=== PATIENT | female | born 1950 | race Caucasian/White ===

== ENCOUNTER → 2017-08-09 | Outpatient (CLI) | payer BC ==
[~2017-08-09] MED LIST: ACET500 PO; ALBU90OI INH; ASPI81CH PO; ASPI81EC PO; BIMA.03OPS OD; BIMA.03OPS OU; CHOL10002 PO; CIPR500 PO; DEXILANT60 MG PO; DICY20 PO; ERGO400 PO; FLUT110OIA INH; GENT.3OPSO BOTHEYES; GLIM4 PO; GLIP5 PO; GLIP5ER PO; INSLI100I SUBQ; LEVFLO500 PO; LISI20 PO; METR70GEL VAG; NATE60 PO; NEBI5 PO; ONDA4ODT MM; PANT20 PO; PANT40 PO; PHENA200 PO; ROSU10TA PO; RXHYDACE PO; RXHYDMOR2 PO; RXPHEN200 PO; SITA100T2 PO; SUCR1 PO; Toprol Xl25 MG PO; VITAMIN D3 PO
[2017-08-09 12:40] LABS: BASOPHILS ABSOLUTE AUTO 0.05 K/mm3 (0.00-0.23); BASOPHILS PERCENT AUTO 1 % (0-2); EOSINOPHILS ABSOLUTE AUTO 0.15 K/mm3 (0.00-0.68); EOSINOPHILS PERCENT AUTO 2 % (0-6); Hematocrit 42.1 % (33.0-51.0); Hemoglobin 14.4 g/dL (11.5-16.0); IMMATURE GRAN ABSOLUTE AUTO 0.01 K/mm3 (0.00-0.10); IMMATURE GRAN PERCENT AUTO 0 % (0-1); LYMPHOCYTES ABSOLUTE AUTO 2.53 K/mm3 (0.84-5.20); LYMPHOCYTES PERCENT AUTO 38 % (21-46); MONOCYTES ABSOLUTE AUTO 0.35 K/mm3 (0.16-1.47); MONOCYTES PERCENT AUTO 5 % (4-13); Mean Corpuscular HGB 29.2 pg (26.0-34.0); Mean Corpuscular HGB Conc 34.2 g/dL (31.5-36.5); Mean Corpuscular Volume 85 fL (80-100); Mean Platelet Volume 10.5 fL (9.1-12.4); NEUTROPHILS ABSOLUTE AUTO 3.59 K/mm3 (1.96-9.15); NEUTROPHILS PERCENT AUTO 54 % (41-73); Platelet Count 267 K/mm3 (150-400); RDW Coefficient Variation 12.3 % (11.7-14.2); RDW Standard Deviation 37.7 fL (35.1-46.3); Red Blood Cell Count 4.93 M/mm3 (3.80-5.20); White Blood Cell Count 6.68 K/mm3 (4.00-11.30)
[2017-08-09 13:00] LABS: Alanine Aminotransfer (ALT/SGP 30 U/L (12-78); Albumin, Blood 4.1 g/dL (3.4-5.0); Alk Phos 63 U/L (40-126); Anion Gap 10 mmol/L (6-16); Aspartate Aminotrans (AST/SGOT 20 U/L (12-37); Bilirubin, Total 0.5 mg/dL (0.1-1.0); Blood Urea Nitrogen 13 mg/dL (8-24); Bun/Creatinine Ratio 16.9 (12.0-20.0); CO2, Blood 28 mmol/L (21-32); Calcium, Blood 9.6 mg/dL (8.5-10.1); Chloride, Blood 102 mmol/L (98-108); Creatinine, Blood 0.77 mg/dL (0.40-1.00); Glomerular Filtration Rate >60 (60-); Glucose, Blood 117 mg/dL (70-99); Potassium, Blood 3.8 mmol/L (3.5-5.5); Sodium, Blood 140 mmol/L (136-145); Thyroid Stimulating Hormone 1.606 uIU/mL (0.360-4.800); Total Protein, Blood 8.1 g/dL (6.4-8.2)
== END | disposition home or self-care (01) ==
LOC: LAB EV 12:36
PROVIDERS: Physician Assistant
DX: R06.01 Orthopnea (principal); R53.83 Other fatigue; E11.65 Type 2 diabetes mellitus with hyperglycemia
CPT/HCPCS: 80053; 83880; 84443; 85025

== ENCOUNTER 2019-01-17 02:38 | Emergency (ER) | payer BC ==
[~2019-01-17] VITALS: Ht 165.1 cm; Wt 81.7 kg
[2019-01-17 03:13] LABS: BASOPHILS ABSOLUTE AUTO 0.04 K/mm3 (0.00-0.23); BASOPHILS PERCENT AUTO 0 % (0-2); EOSINOPHILS ABSOLUTE AUTO 0.25 K/mm3 (0.00-0.68); EOSINOPHILS PERCENT AUTO 3 % (0-6); Hemoglobin 12.5 g/dL (11.5-16.0); IMMATURE GRAN ABSOLUTE AUTO 0.03 K/mm3 (0.00-0.10); IMMATURE GRAN PERCENT AUTO 0 % (0-1); LYMPHOCYTES ABSOLUTE AUTO 2.88 K/mm3 (0.84-5.20); LYMPHOCYTES PERCENT AUTO 29 % (21-46); MONOCYTES ABSOLUTE AUTO 0.73 K/mm3 (0.16-1.47); MONOCYTES PERCENT AUTO 7 % (4-13); Mean Corpuscular HGB 28.5 pg (26.0-34.0); Mean Corpuscular HGB Conc 32.9 g/dL (31.5-36.5); Mean Corpuscular Volume 87 fL (80-100); Mean Platelet Volume 10.3 fL (9.1-12.4); NEUTROPHILS ABSOLUTE AUTO 5.96 K/mm3 (1.96-9.15); NEUTROPHILS PERCENT AUTO 60 % (41-73); Platelet Count 223 K/mm3 (150-400); RDW Coefficient Variation 12.9 % (11.7-14.2); RDW Standard Deviation 40.2 fL (35.1-46.3); Red Blood Cell Count 4.39 M/mm3 (3.80-5.20); White Blood Cell Count 9.89 K/mm3 (4.00-11.30)
[2019-01-17 03:32] LABS: Alanine Aminotransfer (ALT/SGP 22 U/L (12-78); Albumin, Blood 3.7 g/dL (3.4-5.0); Albumin/Globulin Ratio 1.1 (0.8-1.8); Alk Phos 55 U/L (50-136); Anion Gap 6 mmol/L (6-16); Aspartate Aminotrans (AST/SGOT 13 U/L (12-37); Bilirubin, Total 0.2 mg/dL (0.1-1.0); Blood Urea Nitrogen 13 mg/dL (8-24); Bun/Creatinine Ratio 19.4 (12.0-20.0); CO2, Blood 29 mmol/L (21-32); Chloride, Blood 106 mmol/L (98-108); Creatinine, Blood 0.67 mg/dL (0.40-1.00); Globulin, Blood 3.5 g/dL (2.2-4.0); Glomerular Filtration Rate >60 (60-); Glucose, Blood 117 mg/dL (70-99); Potassium, Blood 3.2 mmol/L (3.5-5.5); Sodium, Blood 141 mmol/L (136-145); Total Protein, Blood 7.2 g/dL (6.4-8.2)
[2019-01-17 04:09] LABS: Source, Urine Clean Catch
[2019-01-17 04:11] LABS: Appearance, Urine Clear (Clear); Bilirubin, Urine Neg (Neg); Blood, Urine Neg (Neg); Color, Urine Yellow (P-Yellow); Glucose Qualitative, Urine Neg (Neg); Ketones, Urine Neg (Neg); Leukocyte Esterase, Urine Neg (Neg); Nitrite, Urine Neg (Neg); Protein, Urine Neg (Neg); Urobilinogen, Urine NORM (Normal)
== END 2019-01-17 06:59 | disposition home or self-care (01) ==
LOC: ER 02:38
PROVIDERS: Emergency Medicine
DX: E11.649 Type 2 diabetes mellitus with hypoglycemia without coma (principal); R10.12 Left upper quadrant pain; Z88.2 Allergy status to sulfonamides; Z88.8 Allergy status to other drugs, medicaments and biological substances; Z79.4 Long term (current) use of insulin; Z79.899 Other long term (current) drug therapy; Z79.82 Long term (current) use of aspirin; I10 Essential (primary) hypertension
CPT/HCPCS: 36415; 74176; 80053; 81003; 82947; 85025; 96360; 99285-25; J7030

== ENCOUNTER 2019-12-09 03:27 | Inpatient (IN) | payer MEDICARE, BC ==
[~2019-12-09] VITALS: Ht 165.1 cm; Wt 82.3 kg
[2019-12-09] MEDS ORDERED: NOVOLOG FL100 UNIT/3 (03:50)
[2019-12-09] MEDS ORDERED: LANTUS SOL100 UNIT/1 SC (03:50)
[2019-12-09] MEDS ORDERED: Cymbalta30 MG PO (03:50)
[2019-12-09] MEDS ORDERED: COMBIGAN 0.2%-0.5 ML (03:50)
[2019-12-09] MEDS ORDERED: LATANOPROST2.5 M1 (03:51)
[2019-12-09] MEDS ORDERED: ROCKLATAN 0.022.5 M1 BOTHEYES (03:51)
[2019-12-09] MEDS ORDERED: TRULICITY1.5 MG/0.1 SQ (03:51)
[2019-12-09 05:29] LABS: BASOPHILS ABSOLUTE AUTO 0.04 K/mm3 (0.00-0.23); BASOPHILS PERCENT AUTO 0 % (0-2); EOSINOPHILS ABSOLUTE AUTO 0.21 K/mm3 (0.00-0.68); EOSINOPHILS PERCENT AUTO 2 % (0-6); Hematocrit 42.6 % (33.0-51.0); Hemoglobin 14.1 g/dL (11.5-16.0); IMMATURE GRAN ABSOLUTE AUTO 0.04 K/mm3 (0.00-0.10); IMMATURE GRAN PERCENT AUTO 0 % (0-1); LYMPHOCYTES ABSOLUTE AUTO 2.12 K/mm3 (0.84-5.20); LYMPHOCYTES PERCENT AUTO 19 % (21-46); MONOCYTES ABSOLUTE AUTO 0.48 K/mm3 (0.16-1.47); MONOCYTES PERCENT AUTO 4 % (4-13); Mean Corpuscular HGB 28.8 pg (26.0-34.0); Mean Corpuscular HGB Conc 33.1 g/dL (31.5-36.5); Mean Corpuscular Volume 87 fL (80-100); Mean Platelet Volume 10.9 fL (9.1-12.4); NEUTROPHILS ABSOLUTE AUTO 8.41 K/mm3 (1.96-9.15); NEUTROPHILS PERCENT AUTO 74 % (41-73); Platelet Count 249 K/mm3 (150-400); RDW Standard Deviation 41.1 fL (35.1-46.3)
[2019-12-09 05:50] LABS: Alanine Aminotransfer (ALT/SGP 20 U/L (12-78); Albumin, Blood 3.8 g/dL (3.4-5.0); Albumin/Globulin Ratio 0.9 (0.8-1.8); Alk Phos 64 U/L (50-136); Anion Gap 6 mmol/L (6-16); Aspartate Aminotrans (AST/SGOT 10 U/L (12-37); Bilirubin, Total 0.3 mg/dL (0.1-1.0); Blood Urea Nitrogen 14 mg/dL (8-24); Bun/Creatinine Ratio 19.8 (12.0-20.0); CO2, Blood 30 mmol/L (21-32); Calcium, Blood 9.6 mg/dL (8.5-10.1); Chloride, Blood 104 mmol/L (98-108); Creatinine, Blood 0.71 mg/dL (0.40-1.00); Globulin, Blood 4.1 g/dL (2.2-4.0); Glomerular Filtration Rate >60 (60-); Glucose, Blood 198 mg/dL (70-99); Magnesium, Blood 2.3 mg/dL (1.6-2.4); Potassium, Blood 3.7 mmol/L (3.5-5.5); Sodium, Blood 140 mmol/L (136-145); Total Protein, Blood 7.9 g/dL (6.4-8.2)
[2019-12-09 06:29] LABS: Source, Urine Clean Catch
[2019-12-09 06:33] LABS: Appearance, Urine Clear (Clear); Bilirubin, Urine Neg (Neg); Blood, Urine Neg (Neg); Color, Urine Yellow (P-Yellow); Glucose Qualitative, Urine Neg (Neg); Ketones, Urine Neg (Neg); Leukocyte Esterase, Urine Neg (Neg); Nitrite, Urine Neg (Neg); Protein, Urine Neg (Neg); Urobilinogen, Urine NORM (Normal)
[2019-12-09] MEDS ORDERED: COMBIGAN 0.2%-0.5 ML BOTHEYES (08:54)
--- NOTE | 2019-12-09 17:01 | NUR ---
SHIFT SUMMARY ED ADMIT THIS MORNING. PATIENT MEDICTED FOR PAIN X1 AND NAUSEA X1. DENIES SHORTNESS OF BREATH. PATIENT UP SBA TO BSC. NG RUNNING TO LIS, DRAINING ORANGE BROWN LIQUID. DR. BLOOM CONSULTED TODAY. PATIENT HAD SMALL BM, REPORTS SOME REDUCTION IN ABDOMINAL PAIN. CALL LIGHT IN REACH.
--- NOTE | 2019-12-10 04:10 | NUR ---
SHIFT SUMMARY PT HAS HAD NO ACUTE CHANGES THIS SHIFT, DENIES PAIN/NAUSEA THIS SHIFT, ONLY C/O TENDERNESS IN THROAT D/T NG TUBE & PRESSURE/TENDERNESS IN ABD, PT SLEPT T/O MOST OF THE NIGHT, WOKE 1X D/T DIAPHORESIS, REMAINS AFEBRILE, NG REMIANS IN PLACE 100MLS BROWN OUTBUT THIS SHIFT, PT SLEEPING AT THIS TIME, CALL LIGHT IN REACH, WILL CONT TO MONITOR UNTIL REPORT GIVEN TO DAY RN.
[2019-12-10 04:46] LABS: BASOPHILS ABSOLUTE AUTO 0.03 K/mm3 (0.00-0.23); BASOPHILS PERCENT AUTO 0 % (0-2); EOSINOPHILS ABSOLUTE AUTO 0.16 K/mm3 (0.00-0.68); EOSINOPHILS PERCENT AUTO 2 % (0-6); Hematocrit 37.3 % (33.0-51.0); Hemoglobin 11.9 g/dL (11.5-16.0); IMMATURE GRAN ABSOLUTE AUTO 0.05 K/mm3 (0.00-0.10); IMMATURE GRAN PERCENT AUTO 1 % (0-1); LYMPHOCYTES ABSOLUTE AUTO 2.56 K/mm3 (0.84-5.20); LYMPHOCYTES PERCENT AUTO 28 % (21-46); MONOCYTES ABSOLUTE AUTO 0.59 K/mm3 (0.16-1.47); MONOCYTES PERCENT AUTO 7 % (4-13); Mean Corpuscular HGB 28.5 pg (26.0-34.0); Mean Corpuscular HGB Conc 31.9 g/dL (31.5-36.5); Mean Corpuscular Volume 89 fL (80-100); Mean Platelet Volume 10.8 fL (9.1-12.4); NEUTROPHILS ABSOLUTE AUTO 5.64 K/mm3 (1.96-9.15); NEUTROPHILS PERCENT AUTO 63 % (41-73); Platelet Count 206 K/mm3 (150-400); RDW Coefficient Variation 12.8 % (11.7-14.2); RDW Standard Deviation 41.6 fL (35.1-46.3); Red Blood Cell Count 4.17 M/mm3 (3.80-5.20); White Blood Cell Count 9.03 K/mm3 (4.00-11.30)
[2019-12-10 05:06] LABS: Alanine Aminotransfer (ALT/SGP 15 U/L (12-78); Albumin, Blood 2.9 g/dL (3.4-5.0); Albumin/Globulin Ratio 0.9 (0.8-1.8); Alk Phos 54 U/L (50-136); Anion Gap 3 mmol/L (6-16); Aspartate Aminotrans (AST/SGOT 12 U/L (12-37); Bilirubin, Total 0.5 mg/dL (0.1-1.0); Blood Urea Nitrogen 11 mg/dL (8-24); Bun/Creatinine Ratio 15.3 (12.0-20.0); CO2, Blood 29 mmol/L (21-32); Calcium, Blood 8.3 mg/dL (8.5-10.1); Chloride, Blood 108 mmol/L (98-108); Creatinine, Blood 0.72 mg/dL (0.40-1.00); Globulin, Blood 3.2 g/dL (2.2-4.0); Glomerular Filtration Rate >60 (60-); Glucose, Blood 145 mg/dL (70-99); Potassium, Blood 3.6 mmol/L (3.5-5.5); Sodium, Blood 140 mmol/L (136-145); Total Protein, Blood 6.1 g/dL (6.4-8.2)
[2019-12-11 04:55] LABS: BASOPHILS ABSOLUTE AUTO 0.03 K/mm3 (0.00-0.23); BASOPHILS PERCENT AUTO 0 % (0-2); EOSINOPHILS ABSOLUTE AUTO 0.23 K/mm3 (0.00-0.68); EOSINOPHILS PERCENT AUTO 3 % (0-6); Hematocrit 39.4 % (33.0-51.0); Hemoglobin 12.5 g/dL (11.5-16.0); IMMATURE GRAN ABSOLUTE AUTO 0.04 K/mm3 (0.00-0.10); IMMATURE GRAN PERCENT AUTO 0 % (0-1); LYMPHOCYTES ABSOLUTE AUTO 2.06 K/mm3 (0.84-5.20); LYMPHOCYTES PERCENT AUTO 22 % (21-46); MONOCYTES ABSOLUTE AUTO 0.58 K/mm3 (0.16-1.47); MONOCYTES PERCENT AUTO 6 % (4-13); Mean Corpuscular HGB 28.3 pg (26.0-34.0); Mean Corpuscular HGB Conc 31.7 g/dL (31.5-36.5); Mean Corpuscular Volume 89 fL (80-100); Mean Platelet Volume 10.4 fL (9.1-12.4); NEUTROPHILS ABSOLUTE AUTO 6.39 K/mm3 (1.96-9.15); NEUTROPHILS PERCENT AUTO 69 % (41-73); Platelet Count 221 K/mm3 (150-400); RDW Coefficient Variation 12.8 % (11.7-14.2); RDW Standard Deviation 41.4 fL (35.1-46.3); Red Blood Cell Count 4.42 M/mm3 (3.80-5.20); White Blood Cell Count 9.33 K/mm3 (4.00-11.30)
--- NOTE | 2019-12-11 05:08 | NUR ---
SHIFT SUMMARY PT REPORTED ABD PAIN THROUGHOUT HER ABD. SHE ALSO REPORTED PAIN FROM NG TUBE. MEDICATED X 1 W/ 0.2 MG DILAUDID WITH NO ILL EFFECTS. PT REPORTED RELIEF. PT ALSO COMPLAINED OF NAUSEA THIS EVENING. 1 DOSE 4 MG ZOFRAN GIVEN. NG TUBE IN PLACE HOOKED UP TO LOW INTERMITTENT SUCTION WITH 300 ML LIGHT GREEN OUTPUT THIS EVENING. NO BM THIS EVENING, PT MADE MULTIPLE ATTEMPS SITTING ON THE BSC BUT WAS UNABLE TO PRODUCE ANY STOOL. PT DENIED ANY FLATUS. ABD HAS SOME DISTENTION. BOWEL TONES HYPOACTIVE. PT DID NOT SLEEP WELL THIS EVENING. AWAKE THROUGH MOST OF THE NIGHT. SLEEPING FOR ONLY SHORT PERIODS OF TIME EACH TIME. BLOOD PRESSURE ELEVATED WITH SYSTOLIC 160. HYDRALAZINE 10 MG GIVEN WITH GOOD EFFECT. OTHERWISE VITAL SIGNS STABLE. WILL CONTINUE TO MONITOR AND REPORT TO DAY RN.
[2019-12-11 05:11] LABS: Anion Gap 5 mmol/L (6-16); Blood Urea Nitrogen 7 mg/dL (8-24); Bun/Creatinine Ratio 9.8 (12.0-20.0); CO2, Blood 30 mmol/L (21-32); Calcium, Blood 8.9 mg/dL (8.5-10.1); Chloride, Blood 105 mmol/L (98-108); Creatinine, Blood 0.72 mg/dL (0.40-1.00); Glomerular Filtration Rate >60 (60-); Glucose, Blood 124 mg/dL (70-99); Potassium, Blood 3.2 mmol/L (3.5-5.5); Sodium, Blood 140 mmol/L (136-145)
--- NOTE | 2019-12-11 15:37 | NUR ---
Patient is sitting up in bed and alert. Patient shares with me about her medical issues, medical history and plan of care. Patient talks about her family unit complications and the many stessors she dealing with. Patient is very tearful at times. Patient explains about her belief system (patient attends [employer]). I listen empathically, normalize patient's experience, reinforce helpful attitudes and practices and provide pastoral curriculum counselor and prayer. Patient responds well and displays evidence of reduced stress and improoved peace.I will continue to remain available to patient and family.
--- NOTE | 2019-12-11 15:57 | NUR ---
PATIENT IS ALERT AND ORIENTED. ABLE TO MAKE NEEDS KNOWN. CONTINUES ON NG TUBE WITH LOW-INTERMEDIATE SUCTION AND IS PUTTING OUT DARK GREEN DRAINAGE. STARTED ON IV ABX WITHOUT ANY S/SX OF ADVERSE REACTIONS NOTED OR REPORTED. PATIENT CALLS APPROPRIATELY FOR STAFF ASSIST NEEDED. NO ACUTE CHANGES TO REPORT ON AT THIS TIME. WILL CONTINUE TO MONITOR AND PROVIDE CARE NEEDED.
--- NOTE | 2019-12-12 05:14 | NUR ---
SHIFT SUMMARY A/O, ABLE TO MAKE NEEDS KNOWN. COOPERATIVE WITH CARE. CALLS AND ANSWERS QUESTIONS APPROPRIATELY. C/O PAIN/DISCOMFORT TO ABDOMEN; MEDICATED PER EMAR. ABDOMEN APPEARS TO BE DISTENDED, STATES HAS ONLY HAD 1 EPISODE OF FLATUS SINCE YESTERDAY; DOES NOT RECALL ANY TODAY. BT ARE ACTIVE X4 QUADRANTS, TENDER TO PALPATION. UP WITH 1P ASSIST TO BSC. FLUIDS CONTINUE TO INFUSE WITH INTERMITTENT ABX WITHOUT COMPLICATION. NG SUCTION CONTINUES INTERMITTENTLY. NO ACUTE CHANGES NOTED OVERNIGHT. WCTM. BED IN LOWEST POSITION. CALL LIGHT AND BELONGINGS WITHIN REACH. REPORT TO ONCOMING RN.
--- NOTE | 2019-12-12 14:42 | NUR ---
Patient is sitting up in bed and alert. Patient tells me about her [id number] being brought by ambulance to [facility] last night because a suspected aneurism, her 's knowles with cancer and her granddaughter's (who lives with her) knowles with mental health and seizures. I listen empathically, explore spiritual beliefs and provide recitation of scripture, spiritual guidance and prayer. Patient responds well and shows signs of an elevated mood.
--- NOTE | 2019-12-12 16:25 | NUR ---
NG TUBE REMOVAL NG TUBE REMOVED WITHOUT DIFFICULTY. PT HAD 150 ML OF GREEN DRAINAGE IN CANISTER THAT WAS FROM THIS SHIFT. PT HAS HAD 3 BM'S AFTER RECEIVING CONTRAST FROM BOWEL SERIES. NO COMPLAINTS OF NAUSEA. DR. RAO INTO SEE PT. ORDERED FOR DIET TO BE CLEAR LIQUIDS. NO ACUTE CHANGES. CALL LIGHT IN REACH.
--- NOTE | 2019-12-12 17:08 | NUR ---
HEADACHE PT COMPLAINING OF HAVING A HEADACHE, FEELING LIKE SHE HAS PALPATATIONS, SPASMS IN BACK, AND FEELING FAINT. PT LOOKS FLUSHED IN THE FACE. PT DID RECEIVE HYDRALAZINE IV FOR HTN AND PT'S SBP DROPPED FROM 170 TO 150. THIS RN TALKED WITH DR. RAO AND DISCUSSED WITH HIM PT'S SYMPTOMS. VITALS WNL. NEW ORDERS GIVEN FOR TYLENOL AND STOP IVF. WILL CONTINUE TO MONITOR. CALL LIGHT IN REACH.
--- NOTE | 2019-12-12 17:26 | NUR ---
DISCHARGE THIS RN HAS TRIED CALLING SPOUSE MULTIPLE TIMES TO EXPLAIN DISCHARGE INSTRUCTIONS AND UNABLE TO REACH HIM. LEFT MESSAGE THAT MEDICATIONS WERE FAXED TO [facility] IN [place]. PT TRANSFERRING TO HOME WITH JEREL. WAITING FOR RIDE.
--- NOTE | 2019-12-12 17:30 | NUR ---
SHIFT SUMMARY TYLENOL GIVEN FOR HEADACHE AND IVF STOPPED. PT VISITING WITH DAUGHTER, LAUGHING. PT STILL FLUSHED LOOKING IN FACE. TOLERATING WATER AT THIS TIME WITH NG TUBE REMOVED. REPORT GIVEN TO CHUYITA NOEL. CALL LIGHT IN REACH.
--- NOTE | 2019-12-12 18:32 | NUR ---
SHIFT SUMMARY: ASSUMED CARE OF PATIENT FROM CHUYITA ROGERS. PT A&O; CALM AND COOPERATIVE WITH CARE. TYLENOL PRN FOR PAIN. FAMILY IN ROOM. WCTM.
--- NOTE | 2019-12-12 19:20 | NUR ---
ASSUMED CARE RECEIVED REPORT FROM CHUYITA MEDINA. ASSUMED CARE OF PT. APPEARS COMFORTABLE AT THIS TIME. NO S/S ACUTE DISTRESS NOTED. DENIES NEEDS AT THIS TIME. CALL LIGHT, POSSESSIONS IN REACH. REMINDED PT TO CALL BEFORE GETTING OOB. WCTM.
--- NOTE | 2019-12-13 04:47 | NUR ---
SHIFT SUMMARY PT HAS HAD AN UNEVENTFUL NIGHT. HAS HAD MULTIPLE BMS ON AND OFF T/O NIGHT. TOLERATED DIET ORDERED, PT CONTINUING TO C/O MILD ABD DISCOMFORT, NO N/V NOTED. PASSING LARGE AMOUNTS OF FLATUS. PT ASLEEP AT THIS TIME AFTER BEING AWAKE LATE INTO THE SHIFT. DENIES NEEDS AT THIS TIME. CALL LIGHT, POSSESSIONS IN REACH. WILL CONTINUE TO MONITOR PT UNTIL DAY RN ASSUMES CARE.
[2019-12-13 05:47] LABS: Anion Gap 8 mmol/L (6-16); Blood Urea Nitrogen 9 mg/dL (8-24); Bun/Creatinine Ratio 14.6 (12.0-20.0); CO2, Blood 23 mmol/L (21-32); Calcium, Blood 8.7 mg/dL (8.5-10.1); Chloride, Blood 108 mmol/L (98-108); Creatinine, Blood 0.62 mg/dL (0.40-1.00); Glomerular Filtration Rate >60 (60-); Glucose, Blood 146 mg/dL (70-99); Potassium, Blood 3.4 mmol/L (3.5-5.5); Sodium, Blood 139 mmol/L (136-145)
[2019-12-13] MEDS ORDERED: POTCHL20ER PO (14:02)
[2019-12-13] MEDS ORDERED: CIPR500 PO (14:03)
[2019-12-13] MEDS ORDERED: METR500 PO (14:04)
[2019-12-13] MEDS ORDERED: FAMO20 PO (14:04)
--- NOTE | 2019-12-13 15:54 | NUR ---
summary/discharge PT IS A/O X4, PLEASANT AFFECT. UP IND TO BSC/BR. SHE STATE PASSING GAS INTERMITTANTLY, STATE HAS HAD BM'S DURING NOC. THIS AM HAD ANOTHER BM. DR BLOOM IN TO SEE HER, STATE SBO RESOLVED. PT STATE CONTINUING ABD TENDERNESS & DISTENTION, DR BLOOM ORDER ABD US TO R/O COLECYSTITIS/STONES. RESULTS NEGATIVE. DR RAO IN TO SEE HER STATE SHE MAY GO HOME TODAY & F/U w PCP, PT STATE FEELS READY TO GO HOME. IV D/C INTACT. [facility] D/C AERODYNAMICS ENGINEER WILL ARRANGE F/U APPOINT. SCRIPTS FAXED TO [facility]/REQUEST. D/C INSTRUCT REVIEWED w PT. SHE STATE WILL REPORT TO DR BLOOM IF GI SYMPTOMS RETURN FOR OUTPT F/U. HER GRANDAUGHTER IN FOR TRANSPORTATION HOME. PT IS PLEASANT & APPRECIATIVE.
== END 2019-12-13 16:09 | disposition home or self-care (01) | DRG 390 ==
LOC: ER 03:27 → MEDS 06:52
PROVIDERS: Emergency Medicine; Internal Medicine; ADMIT Family Medicine
PROC: 0D9670Z Drainage of Stomach with Drainage Device, Via Natural or Artificial Opening (ICD-10-PCS; principal; 2019-12-09)
DX: K56.609 Unspecified intestinal obstruction, unspecified as to partial versus complete obstruction (principal); E11.9 Type 2 diabetes mellitus without complications; I10 Essential (primary) hypertension; K21.9 Gastro-esophageal reflux disease without esophagitis; E87.6 Hypokalemia; K52.9 Noninfective gastroenteritis and colitis, unspecified; Z79.4 Long term (current) use of insulin
CPT/HCPCS: 36415; 74176; 74250; 76705; 80048; 80053; 81003; 82947; 83690; 83735; 85025; 93005; 93010; 94762; 96361; 96374; 96375; 96376; 99285-25; A9270; A9270-GY; J0360; J0744; J1170; J1650; J2405; J7030; J7050; J7120

== ENCOUNTER 2023-05-21 13:01 | Emergency (ER) | payer BC ==
[~2023-05-21] VITALS: Ht 167.6 cm; Wt 82.5 kg
[~2023-05-21 13:01] MED LIST changes: +COMBIGAN 0.2%-0.5 ML; +COMBIGAN 0.2%-0.5 ML BOTHEYES; +Cymbalta30 MG PO; +FAMO20 PO; +LANTUS SOL100 UNIT/1 SC; +LATANOPROST2.5 M1; +METR500 PO; +NOVOLOG FL100 UNIT/3; +POTCHL20ER PO; +ROCKLATAN 0.022.5 M1 BOTHEYES; +TRULICITY1.5 MG/0.1 SQ
[2023-05-21 13:41] LABS: BASOPHILS ABSOLUTE AUTO 0.04 K/mm3 (0.00-0.23); BASOPHILS PERCENT AUTO 1 % (0-2); EOSINOPHILS ABSOLUTE AUTO 0.19 K/mm3 (0.00-0.68); EOSINOPHILS PERCENT AUTO 3 % (0-6); Hematocrit 42.7 % (33.0-51.0); Hemoglobin 14.3 g/dL (11.5-16.0); IMMATURE GRAN ABSOLUTE AUTO 0.02 K/mm3 (0.00-0.10); IMMATURE GRAN PERCENT AUTO 0 % (0-1); LYMPHOCYTES ABSOLUTE AUTO 2.49 K/mm3 (0.84-5.20); LYMPHOCYTES PERCENT AUTO 34 % (21-46); MONOCYTES ABSOLUTE AUTO 0.48 K/mm3 (0.16-1.47); MONOCYTES PERCENT AUTO 7 % (4-13); Mean Corpuscular HGB 28.9 pg (26.0-34.0); Mean Corpuscular HGB Conc 33.5 g/dL (31.5-36.5); Mean Corpuscular Volume 86 fL (80-100); Mean Platelet Volume 10.8 fL (9.1-12.4); NEUTROPHILS PERCENT AUTO 56 % (41-73); Platelet Count 245 K/mm3 (150-400); RDW Coefficient Variation 12.3 % (11.7-14.2); RDW Standard Deviation 38.8 fL (35.1-46.3); Red Blood Cell Count 4.94 M/mm3 (3.80-5.20); White Blood Cell Count 7.32 K/mm3 (4.00-11.30)
[2023-05-21 13:53] LABS: Albumin, Blood 3.4 g/dL (3.4-5.0); Bilirubin, Total 0.6 mg/dL (0.1-1.0); Bun/Creatinine Ratio 21.5 (12.0-20.0); Calcium, Blood 8.8 mg/dL (8.5-10.1); Creatinine, Blood 0.6 mg/dL (0.40-1.00); Globulin, Blood 3.4 g/dL (2.2-4.0); Potassium, Blood 3.5 mmol/L (3.5-5.5); Total Protein, Blood 6.8 g/dL (6.4-8.2)
[2023-05-21 16:45] VITALS: BP 168/92
== END 2023-05-21 17:08 | disposition home or self-care (01) ==
LOC: ER 13:01
PROVIDERS: Emergency Medicine
DX: K22.4 Dyskinesia of esophagus (principal); K21.9 Gastro-esophageal reflux disease without esophagitis; E11.9 Type 2 diabetes mellitus without complications; I10 Essential (primary) hypertension; Z88.2 Allergy status to sulfonamides; Z88.8 Allergy status to other drugs, medicaments and biological substances; Z79.4 Long term (current) use of insulin
CPT/HCPCS: 71046; 76705; 80053; 83690; 84484; 85025; 93005; 93010; 99284-25; A9270

== ENCOUNTER 2023-06-24 16:35 | Emergency (ER) | payer BC ==
[~2023-06-24] VITALS: Ht 167.6 cm; Wt 79.4 kg
[2023-06-24 17:26] LABS: Albumin, Blood 2.6 g/dL (3.4-5.0); Albumin/Globulin Ratio 0.6 (0.8-1.8); Bilirubin, Total 0.2 mg/dL (0.1-1.0); Creatinine, Blood 0.56 mg/dL (0.40-1.00); Globulin, Blood 4.5 g/dL (2.2-4.0); Potassium, Blood 3.4 mmol/L (3.5-5.5); Total Protein, Blood 7.1 g/dL (6.4-8.2)
[2023-06-24 17:26] LABS: BASOPHILS ABSOLUTE AUTO 0.05 K/mm3 (0.00-0.23); BASOPHILS PERCENT AUTO 0 % (0-2); EOSINOPHILS ABSOLUTE AUTO 0.18 K/mm3 (0.00-0.68); EOSINOPHILS PERCENT AUTO 2 % (0-6); Hematocrit 37.6 % (33.0-51.0); Hemoglobin 12.3 g/dL (11.5-16.0); IMMATURE GRAN ABSOLUTE AUTO 0.04 K/mm3 (0.00-0.10); IMMATURE GRAN PERCENT AUTO 0 % (0-1); LYMPHOCYTES ABSOLUTE AUTO 2.81 K/mm3 (0.84-5.20); LYMPHOCYTES PERCENT AUTO 24 % (21-46); MONOCYTES ABSOLUTE AUTO 0.75 K/mm3 (0.16-1.47); MONOCYTES PERCENT AUTO 6 % (4-13); Mean Corpuscular HGB 27.6 pg (26.0-34.0); Mean Corpuscular HGB Conc 32.7 g/dL (31.5-36.5); Mean Corpuscular Volume 84 fL (80-100); Mean Platelet Volume 10.2 fL (9.1-12.4); NEUTROPHILS ABSOLUTE AUTO 7.84 K/mm3 (1.96-9.15); NEUTROPHILS PERCENT AUTO 67 % (41-73); Platelet Count 384 K/mm3 (150-400); RDW Standard Deviation 36.3 fL (35.1-46.3); Red Blood Cell Count 4.46 M/mm3 (3.80-5.20); White Blood Cell Count 11.67 K/mm3 (4.00-11.30)
[2023-06-24 17:44] LABS: Influenza A, PCR NEGATIVE (NEGATIVE); Influenza B, PCR NEGATIVE (NEGATIVE); Resp Syncytial Virus, PCR NEGATIVE (NEGATIVE)
[2023-06-24 18:05] LABS: SARS-Cov-2 (COVID-19) PCR, MMC POSITIVE (NEGATIVE)
[2023-06-24] MEDS ORDERED: OMEP20ER (23:17)
[2023-06-24] MEDS ORDERED: Ventolin/Prove6.7 GM INH (23:18)
[2023-06-25] MEDS ORDERED: Ibuprofen600 MG PO (00:08)
[2023-06-25] MEDS ORDERED: ACET500 PO (00:08)
[2023-06-25 00:35] VITALS: BP 148/78
== END 2023-06-25 00:41 | disposition home or self-care (01) ==
LOC: ER 16:35
PROVIDERS: Student in an Organized Health Care Education/Training Program
DX: U07.1 COVID-19 (principal); Z88.6 Allergy status to analgesic agent; Z88.8 Allergy status to other drugs, medicaments and biological substances; Z88.2 Allergy status to sulfonamides; Z79.899 Other long term (current) drug therapy; Z79.84 Long term (current) use of oral hypoglycemic drugs; E11.9 Type 2 diabetes mellitus without complications; K21.9 Gastro-esophageal reflux disease without esophagitis; I10 Essential (primary) hypertension
CPT/HCPCS: 0241U; 71046; 80053; 83690; 84484; 85025; 93005; 93010; 96374; 99285-25; J1885